=== PATIENT | male | born 1965 | race Native Hawaiian/Other Pacific Islander ===

== ENCOUNTER 2017-09-29 18:34 | Emergency (ER) | payer OTHER ==
[~2017-09-29] VITALS: Ht 182.9 cm; Wt 83.9 kg
[~2017-09-29 18:34] MED LIST: BUSPIRONE10 MG PO; CLONIDINE0.1 MG PO; FLUD0.1T PO; LAMO100T OR; LEVE500T5 PO; LISI20TA31 PO; METOPROLOL25 M1 PO
[2017-09-29 18:45] VITALS: BP 135/85; TEMP 98.8
== END 2017-09-29 19:42 | disposition home or self-care (01) ==
LOC: ED 18:34
DX: S61.211A Laceration without foreign body of left index finger without damage to nail, initial encounter (principal)
CPT/HCPCS: 99281

== ENCOUNTER 2019-03-01 13:50 | Emergency (ER) | payer OTHER ==
[~2019-03-01] VITALS: Ht 182.9 cm; Wt 86.2 kg
[2019-03-01 14:16] LABS: PLATELET COUNT 320 K/uL (142-355)
[2019-03-01 14:24] LABS: POTASSIUM 3.7 mmol/L (3.6-5.2)
[2019-03-01 19:14] VITALS: BP 123/74; TEMP 98.9
== END 2019-03-01 19:15 | disposition home or self-care (01) ==
LOC: ED 13:50
PROVIDERS: Family Medicine
DX: R56.9 Unspecified convulsions (principal); X30.XXXA Exposure to excessive natural heat, initial encounter; E87.1 Hypo-osmolality and hyponatremia
CPT/HCPCS: 80053; 80185; 85027; 96360; 96365; 96366; 96375; 99284; J1165; J2060

== ENCOUNTER 2019-09-01 14:25 | Emergency (ER) | payer OTHER ==
[~2019-09-01] VITALS: Ht 182.9 cm; Wt 81.6 kg
[2019-09-01 14:34] VITALS: TEMP 98.8
[2019-09-01 15:19] LABS: PLATELET COUNT 267 K/uL (142-355)
[2019-09-01 15:23] LABS: POTASSIUM 4.3 mmol/L (3.6-5.2)
[2019-09-01] MEDS ORDERED: DILANTIN PO (15:38)
[2019-09-01] MEDS ORDERED: LORA1TAB17 PO (15:39)
[2019-09-01] MEDS ORDERED: LAMICTAL200 MG PO (15:43)
[2019-09-01 17:00] VITALS: BP 130/75
== END 2019-09-01 17:24 | disposition home or self-care (01) ==
LOC: ED 14:25
PROVIDERS: Family Medicine
DX: R56.9 Unspecified convulsions (principal); E87.1 Hypo-osmolality and hyponatremia; E83.51 Hypocalcemia
CPT/HCPCS: 36415; 80053; 80185; 81000; 85027; 96360; 99284

== ENCOUNTER 2019-09-13 17:50 | Emergency (ER) | payer OTHER ==
[~2019-09-13] VITALS: Ht 182.9 cm; Wt 81.6 kg
[~2019-09-13 17:50] MED LIST changes: +DILANTIN PO; +LAMICTAL200 MG PO; +LORA1TAB17 PO
[2019-09-13 18:03] VITALS: BP 128/83; TEMP 97.9
[2019-09-13 19:36] LABS: PLATELET COUNT 302 K/uL (142-355)
[2019-09-13 19:37] LABS: POTASSIUM 4.5 mmol/L (3.6-5.2)
== END 2019-09-13 20:02 | disposition home or self-care (01) ==
LOC: ED 17:50
PROVIDERS: Family Medicine
DX: R56.9 Unspecified convulsions (principal); E87.1 Hypo-osmolality and hyponatremia
CPT/HCPCS: 36591; 80053; 80185; 80307; 81000; 85027; 99283

== ENCOUNTER 2019-10-28 22:57 | Inpatient (IN) | payer OTHER ==
[~2019-10-28] VITALS: Ht 182.9 cm; Wt 78.3 kg
[2019-10-28 22:57] VITALS: BP 120/81; TEMP 99.2
[2019-10-28 23:15] VITALS: BP 115/85
[2019-10-28 23:30] VITALS: BP 121/85
[2019-10-28 23:41] LABS: PLATELET COUNT 238 K/uL (142-355)
[2019-10-28 23:45] LABS: POTASSIUM 4.1 mmol/L (3.6-5.2); SODIUM 131 mmol/L (136-145)
[2019-10-28 23:52] LABS: PARTIAL THROMBOPLASTIN TIME 21.5 SECONDS (24.5-33.6)
[2019-10-29 00:05] VITALS: BP 134/82
[2019-10-29 00:30] VITALS: BP 135/84
[2019-10-29 01:21] VITALS: BP 145/87; TEMP 100.9; Ht 182.9 cm; Wt 78.3 kg
[2019-10-29 05:17] LABS: PLATELET COUNT 237 K/uL (142-355)
[2019-10-29 05:36] LABS: POTASSIUM 4.4 mmol/L (3.6-5.2)
[2019-10-29 08:18] VITALS: BP 124/76; TEMP 99
== END 2019-10-29 11:50 | disposition home or self-care (01) | DRG 101 ==
LOC: ED 22:57 → MED/SURG 10-29 00:24
PROVIDERS: ADMIT Family Medicine
DX: G40.802 Other epilepsy, not intractable, without status epilepticus (principal); D72.828 Other elevated white blood cell count; I10 Essential (primary) hypertension; R50.9 Fever, unspecified
CPT/HCPCS: 36415; 36600; 51702; 80053; 80185; 81000; 82550; 82805; 84484; 85027; 85610; 85730; 87040; 87635; 93005; 99284; J0456; J0696; U0002

== ENCOUNTER 2020-04-24 12:15 | Outpatient (CLI) | payer OTHER ==
[2020-04-24 13:04] LABS: POTASSIUM 4.5 mmol/L (3.6-5.2)
== END 2020-04-25 03:39 | disposition home or self-care (01) ==
LOC: LABW 12:15
PROVIDERS: Internal Medicine
DX: R31.9 Hematuria, unspecified (principal); E87.1 Hypo-osmolality and hyponatremia
CPT/HCPCS: 36415; 80048; 81000